=== PATIENT | male | born 1945 | race Caucasian/White ===

== ENCOUNTER → 2016-08-29 | Outpatient (REF) | payer MEDICARE ==
[2016-08-29 11:31] LABS: BASOPHILS % (AUTO) 0 % (0-2); EOSINOPHILS # (AUTO) 0.5 10^3uL; EOSINOPHILS % (AUTO) 7 % (0-4); LYMPHOCYTES # (AUTO) 1.3 X10^3; MEAN CORPUSCULAR HEMOGLOBIN 29.2 PG (26.0-34.0); MEAN CORPUSCULAR HGB CONC 34.2 g/dL (31.0-37.0); MEAN CORPUSCULAR VOLUME 85 FL (80-100); MEAN PLATELET VOLUME 10.2 FL (6.0-9.5); MONOCYTES # (AUTO) 0.7 X10^3; MONOCYTES % (AUTO) 11 % (3-11); NEUTROPHILS # (AUTO) 4.3 X10^3; NEUTROPHILS % (AUTO) 63 % (51-67); PLATELET COUNT 217 10^3uL (150-450)
[2016-08-29 11:52] LABS: ALBUMIN 4.3 g/dL (3.4-5.0); ANION GAP 17.7 MEQ/L (3-15); CALCULATED IONIZED CALCIUM 3.9 mg/dL (3.8-4.6); TOTAL PROTEIN 7.9 g/dL (6.4-8.5)
== END ==
LOC: LAB 11:22
PROVIDERS: ATTEND Family Medicine
DX: Z79.899 Other long term (current) drug therapy (principal); Z86.2 Personal history of diseases of the blood and blood-forming organs and certain disorders involving the immune mechanism
CPT/HCPCS: 80053; 80164; 85025

== ENCOUNTER → 2016-10-07 | Outpatient (REF) | payer MEDICARE ==
[~2016-10-07] MED LIST: FLUO20CA42 PO; FLX20C PO; FURO-125 PO; LAMO150T PO; LAMO150T3 PO; LUTE20TA PO; MULT-642 PO; OLN2.5T PO; OMEG1CAP58 PO; OMEP20CA6 PO; POTA20TA15 PO; [UNRECOGNIZED DRUG - CODE] PO
[2016-10-07 18:22] LABS: HEPATITIS A ANTIBODY IGM Negative; HEPATITIS B CORE ABY IGM Negative; HEPATITIS B SURFACE ANTIGEN C Negative
== END ==
LOC: LAB 10:19
PROVIDERS: ATTEND Physician Assistant Surgical
DX: Z00.00 Encounter for general adult medical examination without abnormal findings (principal); R94.5 Abnormal results of liver function studies
CPT/HCPCS: 80074

== ENCOUNTER → 2016-10-21 | Outpatient (REF) | payer MEDICARE ==
[2016-10-21 11:35] LABS: BASOPHILS % (AUTO) 0 % (0-2); EOSINOPHILS # (AUTO) 0.2 10^3uL; EOSINOPHILS % (AUTO) 2 % (0-4); LYMPHOCYTES # (AUTO) 1.1 X10^3; MEAN CORPUSCULAR HEMOGLOBIN 29.2 PG (26.0-34.0); MEAN CORPUSCULAR HGB CONC 33.2 g/dL (31.0-37.0); MEAN CORPUSCULAR VOLUME 88 FL (80-100); MEAN PLATELET VOLUME 10.2 FL (6.0-9.5); MONOCYTES # (AUTO) 1.3 X10^3; MONOCYTES % (AUTO) 13 % (3-11); NEUTROPHILS # (AUTO) 7.4 X10^3; NEUTROPHILS % (AUTO) 73 % (51-67); PLATELET COUNT 193 10^3uL (150-450); WHITE BLOOD COUNT 10.14 10^3uL (4.0-11.0)
[2016-10-21 11:49] LABS: ALBUMIN 3.9 g/dL (3.4-5.0); ANION GAP 15.1 MEQ/L (3-15)
== END ==
LOC: LAB 11:20
PROVIDERS: ATTEND Family Medicine
DX: Z86.2 Personal history of diseases of the blood and blood-forming organs and certain disorders involving the immune mechanism (principal); R09.02 Hypoxemia
CPT/HCPCS: 80053; 84300; 85025

== ENCOUNTER → 2016-10-27 | Outpatient (CLI) | payer MEDICARE | LOC: RAD 09:22 | PROVIDERS: ATTEND Family Medicine | DX: R60.0 Localized edema (principal) | CPT/HCPCS: 93306 ==

== ENCOUNTER → 2016-11-07 | Outpatient (CLI) | payer MEDICARE ==
--- NOTE | 2016-11-07 11:52 | Diagnostic Imaging Report ---
PROCEDURE: CT angiography of the chest with contrast. TECHNIQUE: Multiple contiguous axial images were obtained through the chest after uneventful bolus administration of intravenous contrast. Reconstructed CTA MIP acquisitions were also performed. INDICATION: Hypoxia. COMPARISON: None. FINDINGS: There is no evidence of acute pulmonary embolus to the first subsegmental division of the pulmonary arteries. Thoracic aorta is normal in course and caliber. There is some mild scattered calcified aortic atherosclerosis. There is no evidence of aneurysm, focal stenosis, nor dissection. Heart size is within normal limits. There is no large pericardial effusion. There is some calcified coronary atherosclerosis as well. No pathologically enlarged or morphologically abnormal adenopathy is seen within the mediastinum, sudhir, nor axilla. Finally, mild hiatal hernia is present. Evaluation of the lung windows demonstrates multiple nodular and micronodular groundglass density scattered throughout the right lung. There is a 1.2 x 1 cm groundglass nodular density within the right lung base (image 37, series 9). Similar-appearing 1.3 x 1.6 cm nodular groundglass density is also seen within the anterior margins of the base of the right upper lobe (image 26, series 9). Single subpleural micronodular density is seen on the left within the lateral margins of the left upper lobe and measures approximately 4 mm (image 25, series 9). There is no pleural effusion or pneumothorax. Bony structures show no acute abnormalities. No lytic or blastic bony lesions are seen. Included portions of the upper abdomen are unremarkable. IMPRESSION: 1. No evidence of acute pulmonary embolus to the first subsegmental division of the pulmonary arteries. 2. Multiple nodular and micronodular groundglass densities scattered throughout the lungs as described above. Conceivably, these could be on an infectious or inflammatory basis. Pulmonary malignancy however cannot be excluded. Clinical correlation recommended. Short interval followup in three months should also be performed after appropriate course of antibiotic therapy. Dictated by: Dictated on workstation # [id number]
== END ==
LOC: RAD 09:42
PROVIDERS: ATTEND Family Medicine
DX: R09.02 Hypoxemia (principal); R91.1 Solitary pulmonary nodule
CPT/HCPCS: 71275; Q9967

== ENCOUNTER → 2016-11-11 | Outpatient (CLI) | payer MEDICARE | LOC: RT 13:10 | PROVIDERS: ATTEND Family Medicine | DX: R09.02 Hypoxemia (principal) | CPT/HCPCS: 94060; 94726; 94729 ==